=== PATIENT | female | born 1980 | race Caucasian/White ===

== ENCOUNTER 2017-03-05 00:43 | Emergency (ER) | payer OTHER ==
[2017-03-05 04:21] LABS: PLATELET COUNT 242 x10^3mcL (130-400); RED CELL DISTRIBUTION WIDTH 13.6 % (11.5-14.5)
[2017-03-05 04:23] LABS: BASOPHIL % 0 % (0-2)
[2017-03-05 04:29] LABS: CALCIUM 8.8 mg/dL (8.5-10.1); CARBON DIOXIDE 23.8 mmol/L (21-32); CHLORIDE SERUM 103 mmol/L (98-107); CREATININE SERUM 0.4 mg/dL (0.6-1.0); GFR1 > 60 mL/min; GLUCOSE SERUM 94 mg/dL (74-106); POTASSIUM SERUM 3.6 mmol/L (3.5-5.1); SODIUM SERUM 134 mmol/L (136-145)
[2017-03-05 04:36] LABS: ALKALINE PHOSPHATASE 85 U/L (46-116); ALT/SGPT 24 U/L (14-59); AST/SGOT 24 U/L (15-37); BILIRUBIN TOTAL 0.2 mg/dL (0.20-1.00)
[2017-03-05 04:38] LABS: ALBUMIN 2.6 g/dL (3.4-5.0)
[2017-03-05 06:49] VITALS: BP 116/68
== END 2017-03-05 06:49 | disposition home or self-care (01) ==
LOC: ED 00:43
PROVIDERS: Emergency Medicine
DX: O26.893 Other specified pregnancy related conditions, third trimester (principal); R42 Dizziness and giddiness; E07.9 Disorder of thyroid, unspecified; Z3A.00 Weeks of gestation of pregnancy not specified
CPT/HCPCS: J7030; Q0092